=== PATIENT | female | born 1990 | race Caucasian/White ===

== ENCOUNTER 2025-08-10 01:40 | Emergency (ER) | payer SELFPAY | END 2025-08-10 02:40 | disposition home or self-care (01) | LOC: CSHERS 01:40 | DX: J02.9 Acute pharyngitis, unspecified (principal); J01.00 Acute maxillary sinusitis, unspecified; R59.0 Localized enlarged lymph nodes; F90.9 Attention-deficit hyperactivity disorder, unspecified type | CPT/HCPCS: 87081; 87428; 87430; 99283 ==